=== PATIENT | female | born 1990 | race African-American/Black ===

== ENCOUNTER 2016-07-31 12:15 | Emergency (ER) | payer MEDICAID ==
[~2016-07-31 12:15] MED LIST: ACYCLOVIR400 M1 PO; BACTRIM DS TABL1 TAB PO; CEPHALEXIN500 M1 PO; DIFLUCAN150 M1 PO; FLAGYL; HYDROCORTISONE30 G6 APL; MACROBID100 MG/CA1 PO; NO HOME MEDICATION XX; NO MEDICATIONS; NORCO 5-325 TA1 EACH PO; NUVARING VAGIN1 EACH VG; PRENATAL1 EACH PO; VIBRAMYCIN100 M1 PO; ZITHROMAX250 M1 PO
[2016-07-31] MEDS ORDERED: VALIUM5 M1 PO (12:44)
[2016-07-31] MEDS ORDERED: IBUPROFEN800 M1 PO (12:44)
[2016-10-06] MEDS ORDERED: ZOFRAN ODT4 MG PO (21:27)
[2016-10-06] MEDS ORDERED: OMEPRAZOLE MAGN20 M1 PO (21:27)
[2016-10-19] MEDS ORDERED: AMOXICILLIN PO (20:56)
[2016-10-19] MEDS ORDERED: MACROBID 100 M100 M1 PO (21:49)
[2016-10-19] MEDS ORDERED: ACYCLOVIR200 M1 PO (21:49)
[2016-11-01] MEDS ORDERED: NO HOME MEDICATION XX (10:22)
[2016-12-03] MEDS ORDERED: NITROFURANTOIN100 MG PO (17:54)
[2016-12-30] MEDS ORDERED: HYDROCODON-ACE1 EA16 PO (16:19)
== END 2016-07-31 12:57 ==
LOC: EDMED 12:15
DX: M43.6 Torticollis (principal)

== ENCOUNTER 2016-08-01 22:24 | Emergency (ER) | payer MEDICAID ==
[~2016-08-01 22:24] MED LIST changes: +IBUPROFEN800 M1 PO; +VALIUM5 M1 PO
[2016-10-06] MEDS ORDERED: ZOFRAN ODT4 MG PO (21:27)
[2016-10-06] MEDS ORDERED: OMEPRAZOLE MAGN20 M1 PO (21:27)
[2016-10-19] MEDS ORDERED: AMOXICILLIN PO (20:56)
[2016-10-19] MEDS ORDERED: MACROBID 100 M100 M1 PO (21:49)
[2016-10-19] MEDS ORDERED: ACYCLOVIR200 M1 PO (21:49)
[2016-11-01] MEDS ORDERED: NO HOME MEDICATION XX (10:22)
[2016-12-03] MEDS ORDERED: NITROFURANTOIN100 MG PO (17:54)
[2016-12-30] MEDS ORDERED: HYDROCODON-ACE1 EA16 PO (16:19)
== END 2016-08-02 00:03 ==
LOC: EDMED 22:24
DX: M54.2 Cervicalgia (principal); M62.838 Other muscle spasm
CPT/HCPCS: J1885

== ENCOUNTER 2016-08-10 | Emergency (ER) | payer MEDICAID ==
[2016-08-10] MEDS ORDERED: MOBIC7.5 M2 PO (13:31)
[2016-08-10] MEDS ORDERED: SOMA350 M1 PO (13:31)
[2016-08-10] MEDS ORDERED: PREDNISONE10 M1 PO (15:34)
[2016-10-06] MEDS ORDERED: ZOFRAN ODT4 MG PO (21:27)
[2016-10-06] MEDS ORDERED: OMEPRAZOLE MAGN20 M1 PO (21:27)
[2016-10-19] MEDS ORDERED: AMOXICILLIN PO (20:56)
[2016-10-19] MEDS ORDERED: ACYCLOVIR200 M1 PO (21:49)
[2016-10-19] MEDS ORDERED: MACROBID 100 M100 M1 PO (21:49)
[2016-11-01] MEDS ORDERED: NO HOME MEDICATION XX (10:22)
[2016-12-03] MEDS ORDERED: NITROFURANTOIN100 MG PO (17:54)
[2016-12-30] MEDS ORDERED: HYDROCODON-ACE1 EA16 PO (16:19)
== END 2016-08-10 16:15 ==
DX: M54.12 Radiculopathy, cervical region (principal); E11.9 Type 2 diabetes mellitus without complications; Z90.49 Acquired absence of other specified parts of digestive tract; Z79.899 Other long term (current) drug therapy